=== PATIENT | male | born 1990 | race Two or more races ===

== ENCOUNTER 2018-09-12 01:06 | Emergency (ER) | payer OTHER ==
[2018-09-12] MEDS ORDERED: ACETAMINOPHEN 500 MG TABLET (FP) PO ONE (01:43)
[2018-09-12] MEDS ORDERED: AMOX TR/POT CLAV 875MG/125MG TABLETS (FP) PO ONE (01:43)
[2018-09-12] MEDS ORDERED: ACETAMINOPHEN 325 MG TABLET (FP) ONE (01:51)
[2018-09-12] MEDS ORDERED: AMOX TR/POT CLAV 875MG/125MG TABLETS (FP) ONE (01:51)
[2018-09-12] MEDS ORDERED: ALBUTEROL SO4 2.5/IPRATROPIUM 0.5 INH SOL 3 ML VIAL.NEB. NEB ONE ×2 (03:57→04:23)
[2018-09-12] MEDS ORDERED: IBUPROFEN 600 MG TABLET (FP) PO ONE ×2 (04:15→04:23)
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
[2018-09-12 04:33] VITALS: BP 112/79; PULSE 89; TEMP 97.2; BMI 23.0
== END 2018-09-12 04:34 | disposition home or self-care (01) ==
LOC: JER 01:06
PROC: 0HQFXZZ Repair Right Hand Skin, External Approach (ICD-10-PCS; principal; 2018-09-12)
PROC: 3E0F7GC Introduction of Other Therapeutic Substance into Respiratory Tract, Via Natural or Artificial Opening (ICD-10-PCS; 2018-09-12)
DX: S61.411A Laceration without foreign body of right hand, initial encounter (principal); Y04.0XXA Assault by unarmed brawl or fight, initial encounter; Y93.89 Activity, other specified; Y92.89 Other specified places as the place of occurrence of the external cause
CPT/HCPCS: 73130-TC-RT-FY; 99282-25

== ENCOUNTER 2018-09-14 22:03 | Emergency (ER) | payer OTHER ==
[2018-09-14 22:26] VITALS: BP 123/56; PULSE 78; TEMP 98.4; BMI 22.4
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
[2018-09-14] MEDS ORDERED: AMPICILLIN NA/SULBACTAM NA 3 GM in SODIUM CHLORIDE 100 ML IVPB ONE (23:53)
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
== END 2018-09-15 01:24 | disposition short-term general hospital (02) ==
LOC: JER 22:03
DX: T81.41XA Infection following a procedure, superficial incisional surgical site, initial encounter (principal); Z48.817 Encounter for surgical aftercare following surgery on the skin and subcutaneous tissue; Z48.02 Encounter for removal of sutures
CPT/HCPCS: 87070; 87205; 96365; 99283-25